=== PATIENT | female | born 1995 | race Caucasian/White ===

== ENCOUNTER 2021-10-26 09:20 | Observation (INO) | payer MEDICAID ==
[~2021-10-26] VITALS: Ht 160 cm; Wt 83.9 kg
[2021-10-26] MEDS ORDERED: PREN-96 PO (10:30)
[2021-10-26] MEDS ORDERED: ONDANSETRON ODT 4 MG TAB PO ONE (11:00)
== END 2021-10-26 12:22 | disposition home or self-care (01) ==
LOC: LDRP 09:20
PROVIDERS: ADMIT Obstetrics & Gynecology Obstetrics; ATTEND Obstetrics & Gynecology Obstetrics
DX: O47.1 False labor at or after 37 completed weeks of gestation (principal); O21.2 Late vomiting of pregnancy; O34.63 Maternal care for abnormality of vagina, third trimester; N89.8 Other specified noninflammatory disorders of vagina; Z3A.37 37 weeks gestation of pregnancy
CPT/HCPCS: 59025; 81002; 94760; G0378; Q0162

== ENCOUNTER 2021-11-08 23:45 | Observation (INO) | payer MEDICAID ==
[~2021-11-08 23:45] MED LIST: PREN-96 PO
== END 2021-11-09 03:36 | disposition home or self-care (01) ==
LOC: LDRP 23:45
PROVIDERS: ADMIT Obstetrics & Gynecology; ATTEND Obstetrics & Gynecology
DX: O62.9 Abnormality of forces of labor, unspecified (principal); O99.513 Diseases of the respiratory system complicating pregnancy, third trimester; J45.909 Unspecified asthma, uncomplicated; Z3A.39 39 weeks gestation of pregnancy
CPT/HCPCS: G0378 ×2; 59025; 81002

== ENCOUNTER 2021-11-12 21:53 | Inpatient (IN) | payer MEDICAID ==
[~2021-11-12] VITALS: Ht 160 cm; Wt 83.0 kg
[2021-11-12] MEDS ORDERED: PHISODERM TOP SOLN 240ML BTL TOP PRN (22:00)
[2021-11-12] MEDS ORDERED: BUTORPHANOL TARTRATE 2 MG/1 ML VIAL IV PRN ×2 (22:00)
[2021-11-12] MEDS ORDERED: PROMETHAZINE HCL 25 MG/ML 1ML IV PRN (22:00)
[2021-11-12] MEDS ORDERED: LIDOCAINE 2%HCL (LOCAL ANESTH.) INJ 10ml MDV IJ PRN (22:00)
[2021-11-12 22:46] LABS: Basophils # (auto) 0.1 10 ^3/uL (0-0.2); Basophils % (auto) 0.4 % (0.0-2.0); Eosinophils # (auto) 0.1 10 ^3/uL (0-0.8); Eosinophils % (auto) 0.7 % (0.0-7.0); Hematocrit 36.2 % (36.0-46.0); Hemoglobin 12.9 g/dL (12.2-16.2); Lymphocytes # (auto) 2.6 10 ^3/uL (0.4-5.4); Lymphocytes % (auto) 22.6 % (10.0-50.0); Mean Corpuscular Hemoglobin 30.6 pg (28.0-32.0); Mean Corpuscular Hgb Conc. 35.7 g/dL (32.0-36.0); Mean Corpuscular Volume 85.5 fL (80.0-100.0); Monocytes # (auto) 0.7 10 ^3/uL (0-1.3); Monocytes % (auto) 6.2 % (0.0-12.0); Neutrophils # (auto) 8.1 10 ^3/uL (1.6-8.6); Neutrophils % (auto) 70.1 % (37.0-80.0); Red Blood Cells 4.24 10^6/uL (4.0-5.20); Red Cell Distribution Width 13.9 % (11.8-14.3); White Blood Cell 11.5 10^3/uL (4.4-10.8)
[2021-11-12 23:02] LABS: INR 0.92 (0.9-1.15); Partial Thromboplastin Time 23.6 sec (23.6-33.0)
[2021-11-12 23:04] LABS: Potassium 3.5 mmol/L (3.5-5.1)
[2021-11-12 23:07] LABS: BUN/Creatinine Ratio 8.8
[2021-11-12 23:08] LABS: Albumin 2.8 g/dL (3.4-5.0)
[2021-11-12 23:10] LABS: Amphetamine Screen, Urine NEGATIVE (NEGATIVE); Barbiturate Scree,Urine NEGATIVE (NEGATIVE); Benzodiazephine Screen, Urine NEGATIVE (NEGATIVE); Cannabinoid Screen, Urine NEGATIVE (NEGATIVE); Cocaine Screen, Urine NEGATIVE (NEGATIVE); Opiate Scree,Urine NEGATIVE (NEGATIVE); Phencyclidine Screen, Urine NEGATIVE (NEGATIVE)
[2021-11-12 23:10] LABS: Bilirubin, Total 0.4 mg/dL (0.2-1.0); Total Protein 6.5 g/dL (6.4-8.2)
[2021-11-12 23:17] LABS: Urine Amorphous Crystal MOD /hpf (None Seen); Urine Bacteria MOD /hpf (None Seen); Urine Blood 2+ /uL (Negative); Urine Specific Gravity 1.014 (1.001-1.035); Urine WBC 27 /hpf (0 - 5)
[2021-11-12] MEDS: LACTATED RINGER'S 1,000 ML IV SCH (23:17)
[2021-11-12 23:38] LABS: Alcohol, Urine < 3.0 mg/dL (0-10)
[2021-11-13] MEDS: miSOPROStol 50 MCG per PRE-CUT 1/2 TAB PO PRN ×2 (00:57→05:30)
[2021-11-13] MEDS: LACTATED RINGER'S 1,000 ML IV SCH (04:02)
[2021-11-13] MEDS ORDERED: LACT. RINGERS/OXYTOCIN 20UNITS 500 ML IV ONE ×2 (07:30→08:00)
[2021-11-13] MEDS ORDERED: NALOXONE HCL 0.4 MG/ML VIAL IV ONE (07:30)
[2021-11-13] MEDS ORDERED: ePHEDrine SULFATE 50 MG/ML AMP IV ONE (07:30)
[2021-11-13] MEDS ORDERED: LIDOCAINE HCL 2 %PF INJ 10ML AMP IJ ONE (07:30)
[2021-11-13] MEDS ORDERED: ROPIVACAINE HCL 200 ML EPI SCH (07:30)
[2021-11-13] MEDS ORDERED: fentaNYL CITRATE 100 MCG/2 ML VL IV ONE (07:30)
[2021-11-13] MEDS ORDERED: LIDOCAINE 2%HCL (LOCAL ANESTH.) INJ 10ml MDV ONE (09:05)
[2021-11-13] MEDS ORDERED: METHYLERGONOVINE MALEATE 0.2 MG/ML AMP IM ONE ×2 (09:10→09:30)
[2021-11-13] MEDS ORDERED: miSOPROStol 100 mcg TAB PR PRN (09:30)
[2021-11-13] MEDS ORDERED: ACETAMINOPHEN 325 MG TAB PO PRN (09:30)
[2021-11-13] MEDS ORDERED: miSOPROStol 100 mcg TAB SL PRN (09:30)
[2021-11-13] MEDS ORDERED: ONDANSETRON ODT 4 MG TAB PO PRN (09:30)
[2021-11-13] MEDS: WITCH HAZEL-GLYCERIN PAD TOP PRN (09:36)
[2021-11-13] MEDS: DERMOPLAST 60ML BOTTLE TOP PRN (09:36)
[2021-11-13] MEDS: IBUPROFEN 600 MG TAB PO PRN ×2 (10:20→17:07)
[2021-11-13] MEDS: HYDROcodone-ACET 10/325MG TAB PO PRN (11:58)
[2021-11-13] MEDS ORDERED: IBUPROFEN 800 MG TAB PO SCH (12:00)
[2021-11-13 15:19] VITALS: BP 123/59
[2021-11-13] MEDS ORDERED: miSOPROStol 100 mcg TAB PO ONE (18:39)
[2021-11-13 19:30] VITALS: BP 117/63
[2021-11-13 23:25] VITALS: BP 103/68
[2021-11-14] MEDS: HYDROcodone-ACET 10/325MG TAB PO PRN (01:05)
[2021-11-14] MEDS: IBUPROFEN 600 MG TAB PO PRN ×2 (01:05→07:49)
[2021-11-14 03:30] VITALS: BP 108/63
[2021-11-14 06:06] LABS: RPR Non Reactive (Non Reactive)
[2021-11-14 07:30] VITALS: BP 113/68
[2021-11-14 11:15] VITALS: BP 123/72
[2021-11-14] MEDS: DERMOPLAST 60ML BOTTLE TOP PRN (12:10)
[2021-11-14] MEDS: WITCH HAZEL-GLYCERIN PAD TOP PRN (12:10)
== END 2021-11-14 13:10 | disposition home or self-care (01) | DRG 560 ==
LOC: LDRP 21:53
PROVIDERS: ADMIT Obstetrics & Gynecology; ATTEND Obstetrics & Gynecology
PROC: 10E0XZZ Delivery of Products of Conception, External Approach (ICD-10-PCS; principal; 2021-11-13)
PROC: 0KQM0ZZ Repair Perineum Muscle, Open Approach (ICD-10-PCS; 2021-11-13)
PROC: 0UQMXZZ Repair Vulva, External Approach (ICD-10-PCS; 2021-11-13)
DX: O69.81X0 Labor and delivery complicated by cord around neck, without compression, not applicable or unspecified (principal); Z37.0 Single live birth; O70.1 Second degree perineal laceration during delivery; Z20.822 Contact with and (suspected) exposure to COVID-19; Z3A.39 39 weeks gestation of pregnancy; O71.82 Other specified trauma to perineum and vulva
CPT/HCPCS: 36415; 59025; 59409; 80053; 80307; 81001; 81002; 85025; 85610; 85730; 86592; 86850; 86900; 86901; 94760; 96360; 96361; 96365; 96366; 96372; G0378; J2001; J2590